=== PATIENT | female | born 1935 | race Caucasian/White ===

== ENCOUNTER 2020-02-10 15:49 | Emergency (ER) | payer MEDICARE, OTHER ==
[~2020-02-10] VITALS: Ht 144.8 cm; Wt 59.0 kg
--- NOTE | 2020-02-10 15:56 | NUR ---
BIBRA 89 FROM HOME C/O DIFFICULTY SWALLOWING AND SORE THROAT x 4 DAYS, 98% ON ROOM AIR. TO ER BED 6, HOOKED TO MONITOR, CHANGED TO HOSP GOWN, WARM BLANKET PROVIDED. AWAITING MD ALTMAN
--- NOTE | 2020-02-10 16:01 | NUR ---
DR AYON AT BEDSIDE
[2020-02-10 16:54] LABS: BASOPHILS # (AUTO) 0.1 /CMM (0.0-0.2); HEMOGLOBIN 10.4 g/dL (11.5-14.8)
[2020-02-10 17:03] LABS: BASOPHILS % (AUTO) 0.4 % (0.0-2.0); HEMATOCRIT 32 % (33-45); LYMPHOCYTES # (AUTO) 2.8 /CMM (0.8-4.8); LYMPHOCYTES % (AUTO) 7.7 % (20.0-44.0); MEAN CORPUSCULAR HGB CONC 32 g/dl (31.0-36.0); MEAN CORPUSCULAR VOLUME 114 fL (82-100); MONOCYTES % (AUTO) 25.3 % (2.0-12.0); NEUTROPHILS # (AUTO) 23.7 /CMM (1.8-8.9); NEUTROPHILS % (AUTO) 66.6 % (43.0-81.0); PLATELET COUNT (AUTO) 198 /CMM (150-450); RED BLOOD CELL COUNT(AUTO) 2.84 MIL/uL (4.0-5.2)
[2020-02-10 17:08] LABS: CALCIUM, SERUM 8.1 mg/dL (8.5-10.1); CARBON DIOXIDE 21 mmol/L (21-32); CHLORIDE 93 mmol/L (98-107); CREATININE 1.3 mg/dL (0.6-1.3); GLUCOSE 130 mg/dL (74-106); POTASSIUM 3.6 mmol/L (3.5-5.1); SODIUM SERUM 126 mmol/L (136-145); UREA NITROGEN, BLOOD 15 mg/dL (7-18)
[2020-02-10 17:12] LABS: WHITE BLOOD COUNT (AUTO) 35.6 K/uL (4.3-11.0)
[2020-02-10 17:13] LABS: ALANINE AMINOTRANSFERASE 33 U/L (12-78); ALBUMIN 2.9 g/dL (3.4-5.0); ALKALINE PHOSPHATASE 65 U/L (46-116); ASPARTATE AMINOTRANSFERASE 28 U/L (15-37); BILIRUBIN,DIRECT 0.2 mg/dL (0.0-0.2); BILIRUBIN,TOTAL 0.6 mg/dL (0.2-1.0); TOTAL PROTEIN, SERUM 5.1 g/dL (6.4-8.2)
--- NOTE | 2020-02-10 17:40 | NUR ---
CALLED [facility] [phone]
--- NOTE | 2020-02-10 17:47 | NUR ---
IV removed. Catheter intact and site benign. Pressure and 4x4 applied to site. No bleeding noted.
--- NOTE | 2020-02-10 17:47 | NUR ---
Patient does not wish to proceed with medical care recommended by Dr. Matthews. Patient given information related to possible complications, up to and including , which could occur as a result of leaving the hospital at this time. Patient verbalizes understanding of risks involved due to leaving against medical advice. Patient has signed AMA form.
[2020-02-10 17:50] LABS: BAND % (MANUAL) 2 % (0.0-5.0); LYMPHOCYTES % (MANUAL) 14 % (16-48); MONOCYTES % (MANUAL) 15 % (0-11.0); NEUTROPHILS % (MANUAL) 69 (42-76)
[2020-02-10 17:57] VITALS: BP 143/81
== END 2020-02-10 17:58 | disposition left against medical advice (07) ==
LOC: ER 15:50
DX: R13.10 Dysphagia, unspecified (principal); J02.9 Acute pharyngitis, unspecified; E87.1 Hypo-osmolality and hyponatremia; I10 Essential (primary) hypertension; E78.5 Hyperlipidemia, unspecified; K21.9 Gastro-esophageal reflux disease without esophagitis; F32.9 Major depressive disorder, single episode, unspecified
CPT/HCPCS: 36415; 80048-TC; 80076-TC; 85025-TC; 85730-TC